=== PATIENT | female | born 1945 | race Caucasian/White ===

== ENCOUNTER 2018-10-13 20:30 | Emergency (ER) | payer BC, MEDICARE ==
--- NOTE | 2018-10-13 20:37 | EDM.PDOC ---
ED HPI GENERAL MEDICAL PROBLEM - General Stated Complaint: RT ARM PAIN Time Seen by Provider: 10/13/18 20:30 Source of Information: Reports: Patient, Family History Limitations: Reports: No Limitations - History of Present Illness INITIAL COMMENTS - FREE TEXT/NARRATIVE: 73 y.o.w.f came with her to the ED after she fell over a box in the dark onto her right outstretched arm/hand. Pt noticed a deformity and pain with movement of her right wrist. No pain a rest. No N/V/D, no dizziness or any other acute medical issues. BP 152/65 Pulse 83 Pulse ox 95% on RA. Temp 96.9 Onset Date: 10/13/18 Onset Time: 19:00 Duration: Hour(s):, Constant Location: Reports: Upper Extremity, Right Quality: Reports: Ache, Dull, Pressure Improves with: Reports: Rest Worsens with: Reports: Movement Context: Reports: Trauma Associated Symptoms: Reports: No Other Symptoms Review of Systems - Review of Systems Review Of Systems: See Below Constitutional: Reports: No Symptoms Eyes: Reports: No Symptoms Ears: Reports: No Symptoms Nose: Reports: No Symptoms Mouth/Throat: Reports: No Symptoms Respiratory: Reports: No Symptoms Cardiovascular: Reports: No Symptoms GI/Abdominal: Reports: No Symptoms Genitourinary: Reports: No Symptoms Musculoskeletal: Reports: Arm Pain Skin: Reports: No Symptoms Neurological: Reports: No Symptoms Psychiatric: Reports: No Symptoms ED EXAM, GENERAL - Physical Exam Exam: See Below Exam Limited By: No Limitations General Appearance: Alert, WD/WN, Mild Distress Eye Exam: Bilateral Eye: Normal Inspection Ears: Normal External Exam Ear Exam: Bilateral Ear: Auricle Normal Nose: Normal Inspection, Normal Mucosa, No Blood Throat/Mouth: Normal Inspection, Normal Lips, Normal Voice, No Airway Compromise Head: Atraumatic, Normocephalic Neck: Normal Inspection, Supple, Non-Tender, Full Range of Motion Respiratory/Chest: No Respiratory Distress, Lungs Clear, Normal Breath Sounds, No Accessory Muscle Use, Chest Non-Tender Cardiovascular: Normal Peripheral Pulses, Regular Rate, Rhythm, No Edema, No Gallop Peripheral Pulses: 2+: Brachial (L) GI/Abdominal: Normal Bowel Sounds, Soft, Non-Tender, No Organomegaly, No Mass, Pelvis Stable (Female) Exam: Deferred Rectal (Female) Exam: Deferred Back Exam: Normal Inspection, Full Range of Motion Extremities: Slow Capillary Refill, Limited Range of Motion (right forearm) Neurological: Alert, Oriented, CN II-XII Intact, Normal Cognition, Normal Gait Psychiatric: Normal Affect, Normal Mood Skin Exam: Warm, Dry, Intact, Normal Color, No Rash Lymphatic: No Adenopathy ED TRAUMA PROCEDURES - Splinting Right Upper Extremity Splint Site: right forearm Pre-Procedure NV Status: Normal Post-Procedure NV Status: Normal Splint Material: Plaster, Sling Splint Design: Volar Applied & Form Fitted By: Provider Provider Post-Splint Application NV Check: NV Status Normal, Good Position Complications: No Course - Vital Signs Text/Narrative:: 73 y.o.w.f came with her to the ED after she fell over a box in the dark onto her right outstretched arm/hand. Pt noticed a deformity and pain with movement of her right wrist. No pain a rest. No N/V/D, no dizziness or any other acute medical issues. BP 152/65 Pulse 83 Pulse ox 95% on RA. Temp 96.9 PE: WNWD W F with right arm pain/deformity after a fall Imaging: Right distal radius fx with minimal dorsal displacement. Impression: Right distal radius fx with minimal dorsal displacement Tx: Refused pain meds. Long arm splint, ICE were applied 8.50 pm Consultation: Deion Carter: Pt can be seen at the clinic this Tuesday 9 am Reexam: CAP refill < 2 sec, FROM of fingers. Improvement of pain Plan: D/C with instructions - Orders/Labs/Meds Orders: Active Orders 24 hr Category Date Time Status Wrist Comp Min 3V Rt [CR] Stat Exams 10/13/18 20:36 Taken Departure - Departure Time of Disposition: 21:14 Disposition: Home, Self-Care 01 Condition: Good Clinical Impression: Radius distal fracture Qualifiers: Encounter type: initial encounter Fracture type: closed Laterality: right - Discharge Information Instructions: Forearm Fracture, [id number], How to Use a Sling Referrals: Perla Riddle MD [Primary Care Provider] - Emre Fields DO [Physician] - Additional Instructions: Rest, ICE and elevation, Motrin for pain, please f/u with Deion Carter this Tuesday 9 am. Please come back to the ED if your symptoms get worse. acutely - My Orders Last 24 Hours: My Active Orders 10/13/18 20:36 Wrist Comp Min 3V Rt [CR] Stat - Assessment/Plan Last 24 Hours: My Active Orders 10/13/18 20:36 Wrist Comp Min 3V Rt [CR] Stat
== END 2018-10-13 21:21 | disposition home or self-care (01) ==
LOC: FB.ED 20:30
DX: S52.501A Unspecified fracture of the lower end of right radius, initial encounter for closed fracture (principal); W01.0XXA Fall on same level from slipping, tripping and stumbling without subsequent striking against object, initial encounter
CPT/HCPCS: 29105; 29125; 73110-RT; 99283-25